=== PATIENT | female | born 1960 | race Caucasian/White ===

== ENCOUNTER → 2016-10-31 | Outpatient (CLI) | payer OTHER, BC ==
[~2016-10-31] MED LIST: AMITRIPTYLINE H10 M1 PO; DESYREL 100MG100 MG PO; FORTAMET1000 MG PO; IMITREX50 MG PO; PHENERGAN 25 TA25 MG PO; PHENERGAN25 MG RC; PRILOSEC 10MG10 MG PO; ULTRAM 50MG TAB50 MG PO; VITAMIN D50000 IU PO; [UNRECOGNIZED DRUG - REMARK]
== END ==
LOC: MC.RAD 13:43
DX: Z12.31 Encounter for screening mammogram for malignant neoplasm of breast (principal)

== ENCOUNTER → 2018-01-11 | Outpatient (CLI) | payer BC, OTHER | LOC: MC.RAD 14:10 | DX: Z12.31 Encounter for screening mammogram for malignant neoplasm of breast (principal) ==

== ENCOUNTER → 2018-09-08 | Outpatient (CLI) | payer BC | LOC: COL.VAS 14:30 | DX: R60.0 Localized edema (principal) ==

== ENCOUNTER → 2018-09-22 | Outpatient (CLI) | payer BC | LOC: COL.RAD 09:23 | DX: T14.8XXA Other injury of unspecified body region, initial encounter (principal); M18.12 Unilateral primary osteoarthritis of first carpometacarpal joint, left hand; M65.842 Other synovitis and tenosynovitis, left hand; M89.9 Disorder of bone, unspecified ==

== ENCOUNTER → 2019-02-11 | Outpatient (CLI) | payer BC | LOC: MC.RAD 14:19 | DX: Z12.31 Encounter for screening mammogram for malignant neoplasm of breast (principal) ==

== ENCOUNTER 2019-04-08 06:25 | Day surgery (SDC) | payer BC ==
[2019-04-08] VITALS (12 sets, daily range): BP systolic 99–136; BP diastolic 58–102; PULSE 51–59; TEMP 98.4
[~2019-04-08] VITALS: Ht 177.8 cm; Wt 89.6 kg
[~2019-04-08 06:25] MED LIST changes: -DESYREL 100MG100 MG PO; +DESYREL 50MG50 MG PO; +IMITREX100 MG PO; -IMITREX50 MG PO
[2019-04-08 07:23] LABS: HEMATOCRIT 39.4 % (37.0-47.0); HEMOGLOBIN 13.4 g/dl (12.5-16.0); MEAN CELL VOLUME 93 fl (80.0-100.0); MEAN CORPUSCULAR HEMOGLOBIN 32 pg (27.0-31.0); MEAN CORPUSCULAR HGB CONC 34 g/dl (33.0-37.0); MEAN PLATELET VOLUME 9.5 fl (7.4-10.4); PLATELET COUNT 197 K/mm3 (130-400); RED BLOOD COUNT 4.22 M/mm3 (4.10-5.30); REDCELL DISTRIBUTION WIDTH-CV 11.9 % (11.5-14.5)
[2019-04-08 07:38] LABS: PROTHROMBIN TIME 11.4 SECONDS (9.7-12.8)
[2019-04-08 07:45] LABS: CALCIUM 9.2 mg/dL (8.4-10.2); CREATININE, serum 0.78 (0.52-1.25)
[2019-04-08] MEDS ORDERED: NORVASC 5MG5 MG/TAB PO (07:59)
[2019-04-08] MEDS ORDERED: ASPIRIN E.C. 8181 MG PO (08:00)
[2019-04-08] MEDS ORDERED: NITROSTAT0.4 MG/TAB SL (08:00)
[2019-04-08] MEDS ORDERED: FOSAMAX 70MG TA70 MG PO (08:01)
[2019-04-08] MEDS ORDERED: ASTELIN NASAL S34 ML NS (08:02)
[2019-04-08] MEDS ORDERED: LEXAPRO 10MG10 MG PO (08:02)
[2019-04-08] MEDS ORDERED: LINZESS145CAP PO (08:03)
--- NOTE | 2019-04-08 08:45 | NUR ---
Pt to procedure.Report to CLARIBEL Keita
--- NOTE | 2019-04-08 08:49 | NUR ---
SEE MERGE DOCUMENTATION FOR MEDICATION ADMINISTRATION TIMES AND INTRA/POST PROCEDURE SEDATION ASSESSMENTS.
--- NOTE | 2019-04-08 15:40 | NUR ---
Discharge instructions given to pt.Pt verbalizes understanding.INT removed,catheter tip intact.
== END 2019-04-08 16:01 | disposition home or self-care (01) ==
LOC: COL.CAR 06:25
PROVIDERS: Internal Medicine Cardiovascular Disease
DX: R07.9 Chest pain, unspecified (principal); I10 Essential (primary) hypertension; E78.5 Hyperlipidemia, unspecified; K21.9 Gastro-esophageal reflux disease without esophagitis; F41.9 Anxiety disorder, unspecified; G43.909 Migraine, unspecified, not intractable, without status migrainosus; F32.9 Major depressive disorder, single episode, unspecified; J30.9 Allergic rhinitis, unspecified; K58.9 Irritable bowel syndrome, unspecified; G62.9 Polyneuropathy, unspecified; G47.09 Other insomnia; Z88.5 Allergy status to narcotic agent; Z88.1 Allergy status to other antibiotic agents; Z88.8 Allergy status to other drugs, medicaments and biological substances; Z87.891 Personal history of nicotine dependence; Z82.49 Family history of ischemic heart disease and other diseases of the circulatory system
CPT/HCPCS: J1644; J2250; J3010; Q9967

== ENCOUNTER → 2019-05-17 | Outpatient (CLI) | payer BC ==
[~2019-05-17] MED LIST changes: +ASPIRIN E.C. 8181 MG PO; +ASTELIN NASAL S34 ML NS; +FOSAMAX 70MG TA70 MG PO; +LEXAPRO 10MG10 MG PO; +LINZESS145CAP PO; +NITROSTAT0.4 MG/TAB SL; +NORVASC 5MG5 MG/TAB PO
== END ==
LOC: COL.RAD 13:40
DX: M54.2 Cervicalgia (principal); R42 Dizziness and giddiness

== ENCOUNTER 2019-05-30 07:28 | Outpatient (CLI) | payer BC ==
--- NOTE | 2019-05-27 16:49 | NUR ---
CALLED PT'S NUMBER, WENT TO VOICEMAIL, VOICEMAIL FULL.
[~2019-05-30] VITALS: Ht 177.8 cm; Wt 91.7 kg
[2019-05-30 08:10] VITALS: BP 116/80; PULSE 66; TEMP 98
[2019-05-30] MEDS ORDERED: CEPHALEXIN500 M1 PO (09:42)
--- NOTE | 2019-05-30 10:00 | NUR ---
Reviewed written dc instructions with pt. She reports had asked all of her questions to wheelabrator operator rn and md and is ready for discharge. Loop site covered with clean and dry gauze and tegaderm, actual site not visualized by me prior to discharge. pt is p,w,d, ambulatory with steady gait with sig other.
== END 2019-05-30 10:45 | disposition home or self-care (01) ==
LOC: COL.CAR 07:28
DX: I47.1 Supraventricular tachycardia (principal); E78.5 Hyperlipidemia, unspecified; I10 Essential (primary) hypertension; K21.9 Gastro-esophageal reflux disease without esophagitis; F41.9 Anxiety disorder, unspecified; G43.909 Migraine, unspecified, not intractable, without status migrainosus; I51.7 Cardiomegaly; Z88.1 Allergy status to other antibiotic agents; Z88.5 Allergy status to narcotic agent; Z87.891 Personal history of nicotine dependence
CPT/HCPCS: 27124; C1764

== ENCOUNTER → 2020-10-02 | Outpatient (CLI) | payer BC, OTHER ==
[~2020-10-02] MED LIST changes: +CEPHALEXIN500 M1 PO
== END ==
LOC: COL.RAD 10-01 07:30
DX: R10.11 Right upper quadrant pain (principal); Z90.49 Acquired absence of other specified parts of digestive tract; Z90.710 Acquired absence of both cervix and uterus
CPT/HCPCS: Q9967

== ENCOUNTER 2020-11-13 10:27 | Day surgery (SDC) | payer BC, OTHER ==
[~2020-11-13] VITALS: Ht 177.8 cm; Wt 96.9 kg
[2020-11-13] VITALS (9 sets, daily range): BP systolic 117–147; BP diastolic 62–92; PULSE 16–76; TEMP 98–98.3
[2020-11-13] MEDS ORDERED: CARTIA XT120 MG PO (11:16)
[2020-11-13] MEDS ORDERED: UBRELVY50 MG PO (11:16)
[2020-11-13] MEDS ORDERED: PROTONIX20 MG PO (11:17)
[2020-11-13] MEDS ORDERED: PROTONIX 40MG T40 MG PO (11:19)
[2020-11-13] MEDS ORDERED: NORCO 325 MG-51 TAB PO (14:19)
--- NOTE | 2020-11-13 15:15 | NUR ---
TO RM 6 PER CART FROM PACU. PATIENT SLEEPING QUIETLY. ANSWERS QUESTIONS WITH A NOD YES OR NO. RESTING QUIETLY WITH NO SIGNS OF DISTRESS. DRESSINGS CLEAN DRY INTACT. O2 AT 2L PER NC WITH SATS 100%
--- NOTE | 2020-11-13 15:30 | NUR ---
C/O PAIN INCREASING TO A 7/10 AND STARTING TO FEELING NAUSEATED.
--- NOTE | 2020-11-13 15:45 | NUR ---
AT 1537 RECEIVED ZOFRAN 4MG IV . PATIENT BACK TO SLEEP. AROUSES EASILY.
--- NOTE | 2020-11-13 15:50 | NUR ---
C/O PAIN 06/09 AND RECEIVED NORCO 5MG ALSO RECEIVED CRACKERS AND SIPPING ON WATER.
--- NOTE | 2020-11-13 16:30 | NUR ---
STATED THE PAIN IS 5/10 AND NAUSEA IS BETTER.
--- NOTE | 2020-11-13 16:45 | NUR ---
PATIENT SAT UP ON SIDE OF BED AND C/O DIZZINESS AND NAUSEA COMING BACK. LAYED BACK DOWN.
--- NOTE | 2020-11-13 17:15 | NUR ---
STOOD UP, BUT C/O OF FEELING EVEN MORE DIZZY. ONCE SHE LAYED BACK DOWN SHE SAID SHE FELT BETTER. DR BROWNLEE CALLED AND UPDATED. MAY KEEP A COUPLE OF HOURS AND THEN UPDATE HIM.
--- NOTE | 2020-11-13 17:25 | NUR ---
RESIDENTIAL INSTALLER CALLED AND UPDATED. CALLED AND UPDATED
--- NOTE | 2020-11-13 17:53 | NUR ---
REPORT GIVEN TO RAMIRO - STUDENT UNDER [facility].
--- NOTE | 2020-11-13 18:00 | NUR ---
PATIENT TRANSFERED TO THE FLOOR FROM SAME DAY SURGERY. PATIENT IS ALERT AND ORIENTED X3 BUT VERY DROWSY. VSS. PATIENT HAS COMPLAINTS OF NAUSEA WITH NO EMESIS AT THIS TIME. EMESIS BAG WITHIN REACH. PATIENT HAS HAD A BILATERAL LAP ING HERNIA REPAIR. THERE ARE THREE INCISIONS ON THE ABDOMEN, COVERED WITH BANDAIDS, CLEAN DRY AND INTACT. NO COMPLAINTS OF PAIN AT THIS MOMENT. HEAD TO TOE ASSESSMENT COMPLETE. LUNG SOUNDS ARE CLEAR IN ALL SEARS. HEART SOUNDS ARE REGULAR AND NORMAL. BOWEL SOUNDS ARE ACTIVE IN ALL FOUR QUADRANTS. PULSES ARE GRADED AT A 1 IN RADIAL, PEDAL AND POST TIBIAL LOCATIONS. EDEMA IS NOTED IN THE LOWER EXTREMETIES. PATIENT DENIES ANY TENDERNESS OR PAIN. NO REDNESS OR WARMTH NOTED. WARM BLANKET WAS APPLIED TO ABDOMEN FOR COMFORT MEASURES. PATIENT IS RESTING IN ROOM WITH BED AT THE LOWEST POSITION AND THE CALL LIGHT WITHIN REACH.
--- NOTE | 2020-11-13 18:10 | NUR ---
TRANSFERED PATIENT TO [facility]- PATIENT TRANSFERED SELF TO BED. PATIENT SLEPT UPON TRANSFER.
--- NOTE | 2020-11-13 19:00 | NUR ---
PT IN BED. REPORTS MIGRAINE. HAS SL TO LEFT HAND. AT BEDSIDE.
--- NOTE | 2020-11-13 20:00 | NUR ---
PT TAKES HOME MIGRAINE MED. HAS VOIDED AND EATEN APPLESAUCE. LAP SITES X3 WITH DRY BANDAIDS. MILD NAUSEA, NO EMESIS. SITTING AT EDGE OF BED. DR BROWNLEE UPDATED. OKAYED FOR PT TO DISCHARGE AT 2100 IF HEADACHE HAS IMPROVED AND OVERALL FEELING BETTER.
--- NOTE | 2020-11-13 21:10 | NUR ---
PT DRESSED AND READY FOR DISCHARGE. REMOVED SL FROM LEFT HAND, ANGIOCATH INTACT. REVIEWED DISCHARGE INSTRUCTIONS WITH PT. VERBALIZED UNDERSTANDING.
--- NOTE | 2020-11-13 21:13 | NUR ---
DISCHARGED VIA W/C TO PRIVATE VEHICLE. PERSONAL BELONGINGS SENT WITH PT WELL DISCHARGE INSTRUCTIONS.
== END 2020-11-13 21:13 | disposition home or self-care (01) ==
LOC: SDCO 10:27 → JCC 18:00 → SDCO 21:13
DX: K40.20 Bilateral inguinal hernia, without obstruction or gangrene, not specified as recurrent (principal); I10 Essential (primary) hypertension; G43.909 Migraine, unspecified, not intractable, without status migrainosus; F32.9 Major depressive disorder, single episode, unspecified; J31.0 Chronic rhinitis; I47.1 Supraventricular tachycardia; K21.9 Gastro-esophageal reflux disease without esophagitis; K58.1 Irritable bowel syndrome with constipation; Z20.822 Contact with and (suspected) exposure to COVID-19; F41.9 Anxiety disorder, unspecified; G47.00 Insomnia, unspecified; Z87.891 Personal history of nicotine dependence; Z79.82 Long term (current) use of aspirin; Z79.899 Other long term (current) drug therapy; Z95.9 Presence of cardiac and vascular implant and graft, unspecified; Z80.51 Family history of malignant neoplasm of kidney
CPT/HCPCS: OP; C1781; J0330; J0690; J1100; J1885; J2405; J2704; J3010; J7120

== ENCOUNTER 2021-02-20 06:53 | Day surgery (SDC) | payer BC, OTHER ==
[~2021-02-20] VITALS: Ht 177.8 cm; Wt 97.6 kg
[~2021-02-20 06:53] MED LIST changes: +CARTIA XT120 MG PO; +NORCO 325 MG-51 TAB PO; +PROTONIX 40MG T40 MG PO; +PROTONIX20 MG PO; +UBRELVY50 MG PO
[2021-02-20 07:28] VITALS: BP 112/57; PULSE 66; TEMP 98.2
[2021-02-20 08:36] VITALS: PULSE 57
--- NOTE | 2021-02-20 08:38 | NUR ---
SEE MERGE FOR ALL MEDICATION ADMINISTRATION TIMES, INTRA AND POST SEDATION ASSESSMENTS
[2021-02-20] MEDS ORDERED: CLEOCIN HCL300 MG PO (08:59)
[2021-02-20 09:16] VITALS: BP 106/73; PULSE 79
[2021-02-20 09:30] VITALS: BP 104/74; PULSE 59
[2021-02-20 09:45] VITALS: BP 107/62; PULSE 57
[2021-02-20 10:00] VITALS: BP 106/66; PULSE 56
--- NOTE | 2021-02-20 10:26 | NUR ---
IV vanc infusion completed. DC instructions reviewed with pt and , both express understanding. IV DC'd with catheter intact. Pt steady on feet. Dressing over loop removal site remains clean, dry and intact. Pt and are escorted out to elevator by ambulation.
== END 2021-02-20 10:28 | disposition home or self-care (01) ==
LOC: COL.CAR 06:53
DX: Z45.09 Encounter for adjustment and management of other cardiac device (principal); I47.1 Supraventricular tachycardia; I49.3 Ventricular premature depolarization; I34.9 Nonrheumatic mitral valve disorder, unspecified; I10 Essential (primary) hypertension; E78.2 Mixed hyperlipidemia; J30.9 Allergic rhinitis, unspecified; G43.109 Migraine with aura, not intractable, without status migrainosus; K21.9 Gastro-esophageal reflux disease without esophagitis; E78.5 Hyperlipidemia, unspecified; K58.9 Irritable bowel syndrome, unspecified; G62.9 Polyneuropathy, unspecified; G47.09 Other insomnia; F32.9 Major depressive disorder, single episode, unspecified; F41.9 Anxiety disorder, unspecified; E55.9 Vitamin D deficiency, unspecified; Z90.89 Acquired absence of other organs; Z90.49 Acquired absence of other specified parts of digestive tract; Z79.899 Other long term (current) drug therapy; Z87.891 Personal history of nicotine dependence; Z83.3 Family history of diabetes mellitus; Z80.51 Family history of malignant neoplasm of kidney; Z95.818 Presence of other cardiac implants and grafts
CPT/HCPCS: J2250; J3010; J3370; J7050

== ENCOUNTER → 2022-11-03 | Outpatient (CLI) | payer BC, OTHER ==
[~2022-11-03] MED LIST changes: +CLEOCIN HCL300 MG PO
== END ==
LOC: COL.RAD 12:35
DX: G93.89 Other specified disorders of brain (principal); G44.85 Primary stabbing headache; M54.2 Cervicalgia

== ENCOUNTER → 2022-11-27 | Outpatient (CLI) | payer BC, OTHER | LOC: COL.RAD 12:58 | DX: G43.109 Migraine with aura, not intractable, without status migrainosus (principal); R90.89 Other abnormal findings on diagnostic imaging of central nervous system | CPT/HCPCS: Q9967 ==